=== PATIENT | female | born 1950 | race African-American/Black ===

== ENCOUNTER 2017-11-06 22:01 | Emergency (ER) | payer MEDICARE, MEDICAID ==
[~2017-11-06] VITALS: Ht 165.1 cm; Wt 73.0 kg
[~2017-11-06 22:01] MED LIST: BENAZEPRIL PO; DIAZ10TA PO
[2017-11-06 23:20] LABS: BASOPHILS % 0.6 % (0.0-2.0); EOSINOPHILS % 2.9 % (0.0-5.0); HEMATOCRIT. 44.8 % (36.0-48.0); HEMOGLOBIN. 15.6 g/dL (12.0-16.0); MEAN CORPUSCULAR HEMOGLOBIN 32.9 pg (28.0-32.0); MEAN CORPUSCULAR VOLUME 94.3 fL (81.0-99.0); MEAN PLATELET VOLUME 7.2 fl (7.4-10.4); MONOCYTES % 7.4 % (2.0-8.0); NEUTROPHILS % 35.1 % (40.0-76.0); PLATELET 276 x1000/uL (130-400); RED BLOOD CELL COUNT 4.75 mill/uL (4.2-5.4)
[2017-11-06 23:26] LABS: CHLORIDE 111 mEq/L (98-107)
[2017-11-06 23:28] LABS: PROTHROMBIN TIME 10.6 sec (9.4-11.6)
[2017-11-06 23:30] LABS: ETHANOL BLOOD 203 mg/dL
[2017-11-07] MEDS ORDERED: SODIUM CHLORIDE 0.9% 1000ML BAG (SEPSIS BOLUS) IV NR (00:45)
[2017-11-07 01:29] LABS: CLARITY URINE CLEAR (CLEAR); COLOR URINE YELLOW (YELLOW); KETONES URINE NEGATIVE (NEGATIVE); LEUKOCYTE ESTERASE URINE NEGATIVE (NEGATIVE); NITRITE URINE NEGATIVE (NEGATIVE); OCCULT BLOOD URINE NEGATIVE (NEGATIVE); PH URINE 6.5 (4.5-8.0); PROTEIN URINE TRACE (NEGATIVE); SPECIFIC GRAVITY URINE 1.008 (1.005-1.030); UROBILINOGEN URINE 0.2 E.U./dL (0.2-1.0)
[2017-11-07 01:42] LABS: *BARBITURATES SCREEN URINE NEGATIVE (NEGATIVE)
[2017-11-07 01:43] LABS: *BENZODIAZEPINES SCREEN URINE PRESUMTIVE POSITIVE (NEGATIVE); *COCAINE SCREEN URINE NEGATIVE (NEGATIVE); CANNABINOID URINE SCREEN NEGATIVE (NEGATIVE); METHADONE URINE SCREEN NEGATIVE (NEGATIVE); OPIATES URINE SCREEN NEGATIVE (NEGATIVE); PHENCYCLIDINE URINE SCREEN NEGATIVE (NEGATIVE)
[2017-11-07 01:44] LABS: *AMPHETAMINES SCREEN URINE NEGATIVE (NEGATIVE)
[2017-11-07 07:09] VITALS: BP 131/75
== END 2017-11-07 07:10 | disposition home or self-care (01) ==
LOC: ER 22:13 → CANBEDREQ 11-07 09:03
DX: R41.0 Disorientation, unspecified (principal); F13.10 Sedative, hypnotic or anxiolytic abuse, uncomplicated; F10.10 Alcohol abuse, uncomplicated; J44.9 Chronic obstructive pulmonary disease, unspecified; I10 Essential (primary) hypertension; E11.9 Type 2 diabetes mellitus without complications
CPT/HCPCS: 36415; 70450; 71045; 74176; 80053; 80305; 81003; 82962; 83605; 83690; 83880; 84443; 84484; 85025; 85610; 87040; 87086; 93005; 96360; 96361; 99285; G0482; J7030

== ENCOUNTER 2018-03-17 16:57 | Emergency (ER) | payer MEDICARE ==
[~2018-03-17] VITALS: Ht 170.2 cm; Wt 78.0 kg
[2018-03-17] MEDS ORDERED: ACETAMINOPHEN 325MG TABLET PO ONE (17:15)
[2018-03-17 20:47] VITALS: BP 156/87
== END 2018-03-17 20:50 | disposition home or self-care (01) ==
LOC: ER 16:57
DX: M16.11 Unilateral primary osteoarthritis, right hip (principal); I10 Essential (primary) hypertension; Z79.899 Other long term (current) drug therapy
CPT/HCPCS: 73502; 99284

== ENCOUNTER 2021-04-23 09:13 | Emergency (ER) | payer MEDICARE, MEDICAID ==
[~2021-04-23] VITALS: Ht 170.2 cm; Wt 59.0 kg
[2021-04-23] MEDS ORDERED: KETOROLAC 30MG/ML VIAL IV ONE (09:45)
[2021-04-23] MEDS ORDERED: MORPHINE SULFATE 4 MG/ML CPJ (NOT FOR IM USE) IV ONE (09:45)
[2021-04-23 10:33] LABS: HEMATOCRIT. 38.5 % (36.0-48.0); HEMOGLOBIN. 13.1 g/dL (12.0-16.0); MEAN CORPUSCULAR HEMOGLOBIN 31.9 pg (28.0-32.0); MEAN CORPUSCULAR VOLUME 93.6 fL (81.0-99.0); MEAN PLATELET VOLUME 7.7 fl (7.4-10.4); PLATELET 196 x1000/uL (130-400); RED BLOOD CELL COUNT 4.11 mill/uL (4.2-5.4); RED CELL DISTRIBUTION WIDTH 13.6 % (11.6-14.6)
[2021-04-23 10:42] LABS: CHLORIDE 109 mEq/L (98-107)
[2021-04-23 10:43] LABS: CLARITY URINE CLOUDY (CLEAR); COLOR URINE YELLOW (YELLOW); KETONES URINE NEGATIVE (NEGATIVE); LEUKOCYTE ESTERASE URINE 2+ (NEGATIVE); NITRITE URINE POSITIVE (NEGATIVE); OCCULT BLOOD URINE TRACE (NEGATIVE); PH URINE 5.5 (4.5-8.0); PROTEIN URINE 1+ (NEGATIVE); SPECIFIC GRAVITY URINE 1.012 (1.005-1.030); UROBILINOGEN URINE 0.2 E.U./dL (0.2-1.0)
[2021-04-23] MEDS ORDERED: HYDR-4009 PO (11:06)
[2021-04-23] MEDS ORDERED: LEVO250T58 PO (11:13)
[2021-04-23] MEDS ORDERED: LEVOFLOXACIN 250MG TABLET PO ONE ×2 (11:15→11:30)
[2021-04-23 11:52] VITALS: BP 115/61
[2021-04-23 12:35] LABS: PLATELET ESTIMATE NORMAL
== END 2021-04-23 12:14 | disposition home or self-care (01) ==
LOC: ER 09:13
DX: N39.0 Urinary tract infection, site not specified (principal); G89.29 Other chronic pain; M54.50 Low back pain, unspecified; M79.605 Pain in left leg; M79.604 Pain in right leg; R26.2 Difficulty in walking, not elsewhere classified; J98.6 Disorders of diaphragm; I10 Essential (primary) hypertension
CPT/HCPCS: 36415; 71045; 80053; 81003; 85025; 87077; 87086; 87186; 96374; 96375; 99284; J1885; J2270